=== PATIENT | female | born 1945 ===

== ENCOUNTER 2021-07-13 05:24 | Day surgery (SDC) | payer OTHER ==
[~2021-07-13 05:24] MED LIST: COZAAR100 MG PO; HYDROCHLOROTHIA25 MG PO; SIMVASTA PO; SYNTHROID75 MCG PO
== END 2021-07-13 12:25 | disposition home or self-care (01) ==
LOC: CIR.AMB 05:24
PROVIDERS: ATTEND Surgery Surgery of the Hand
DX: M71.341 Other bursal cyst, right hand (principal); Z20.822 Contact with and (suspected) exposure to COVID-19